=== PATIENT | male | born 1940 | race Caucasian/White ===

== ENCOUNTER 2022-06-17 06:07 | Emergency (ER) | payer MEDICARE, OTHER ==
[2022-06-17] MEDS ORDERED: Sodium Chloride 0.9% 1,000 ML IV ONE (06:14)
[2022-06-17] MEDS ORDERED: Ondansetron 4 MG/2 ML SDV ONE (06:31)
[2022-06-17] MEDS ORDERED: Ondansetron 4 MG/2 ML SDV IVPUSH ONE (06:31)
[2022-06-17 07:04] LABS: BLOOD UREA NITROGEN,BUN 18 mg/dL (7.0-18.0); CARBON DIOXIDE,CO2 25.7 mmol/L (21.0-32.0); CHLORIDE,CL 104 mmol/L (98-107); GLUCOSE RANDOM 229 mg/dL (74-106); POTASSIUM,K 4.1 mmol/L (3.5-5.1); SODIUM,NA 141 mmol/L (136-148)
[2022-06-17 07:07] LABS: ESTIMATED GFR 68 mL/min (>60)
[2022-06-17 07:15] LABS: CORONAVIRUS COVID-19 NAA NEGATIVE (NEGATIVE); INFLUENZA A NAA NEGATIVE (NEGATIVE); INFLUENZA B NAA NEGATIVE (NEGATIVE)
== END 2022-06-17 09:00 ==
LOC: MW.ED 06:07
DX: I61.9 Nontraumatic intracerebral hemorrhage, unspecified (principal); E11.9 Type 2 diabetes mellitus without complications; J44.9 Chronic obstructive pulmonary disease, unspecified; I10 Essential (primary) hypertension; I25.10 Atherosclerotic heart disease of native coronary artery without angina pectoris; E78.5 Hyperlipidemia, unspecified; Z95.1 Presence of aortocoronary bypass graft; Z88.0 Allergy status to penicillin; Z79.02 Long term (current) use of antithrombotics/antiplatelets; Z79.899 Other long term (current) drug therapy; Z20.822 Contact with and (suspected) exposure to COVID-19
CPT/HCPCS: 0240U; 36415; 70450; 71045; 80053; 80307; 83605; 83735; 83880; 84484; 85025; 85610; 85730; 86140; 87040; 93005; 96361; 96374; 99285; J2405; J7030